=== PATIENT | female | born 1980 | race American Indian/Alaskan Native ===

== ENCOUNTER 2017-01-18 07:34 | Emergency (ER) | payer MEDICAID ==
[2017-01-18 07:58] VITALS: BP 145/90
== END 2017-01-18 13:00 | disposition left against medical advice (07) ==
LOC: ED 07:34
DX: M54.2 Cervicalgia (principal); M54.9 Dorsalgia, unspecified; Z53.21 Procedure and treatment not carried out due to patient leaving prior to being seen by health care provider

== ENCOUNTER 2017-03-30 14:33 | Emergency (ER) | payer MEDICAID ==
--- NOTE | 2017-03-30 15:09 | Emergency Department Report ---
Chief Complaint: Back Pain/Injury Stated Complaint: BACK AND LEFT SIDE Time Seen by Provider: 03/30/17 15:04 - HPI History of Present Illness: PT c/o back pain x 2-3 years. PT states no improvement with muscle relaxer. - ROS Review of Systems: - dysuria - Exam Physical Exam: PT looks well, non toxic + L CVA tenderness MSE screening note: Focused history and physical exam performed. Due to findings the following was ordered: lab ED Disposition for MSE Condition: Stable
[2017-03-30] MEDS ORDERED: PERCOCET 5/325 PO ONE (17:50)
--- NOTE | 2017-03-30 17:51 | Emergency Department Report ---
ED Back Pain/Injury HPI - General Chief Complaint: Back Pain/Injury Stated Complaint: BACK AND LEFT SIDE Time Seen by Provider: 03/30/17 15:04 Source: patient Limitations: No Limitations - History of Present Illness Initial Comments: 37-year-old female past medical history chronic back pain presents with complaint of acute on chronic lower back pain. He denies dysuria hematuria nausea vomiting denies any recent falls denies any saddle paresthesias patient is fully lucid ambulatory without assistance. States she has 6-7 herniated disks in her lower back. His following up as an outpatient with primary doctor but does not have appointment for another 2 weeks. Patient states that her pain is currently a 6 out of 10. MD Complaint: back pain Onset/Timin -: month(s) (6) Similar Symptoms Previously: Yes Place: home Severity: moderate Severity scale (0 -10): 6 Quality: aching Consistency: constant Improves With: none Worsens With: none Associated Symptoms: denies other symptoms - Related Data Home Medications Medication Instructions Recorded Confirmed Last Taken Diclofenac Dr [Camille Dr] 75 mg PO BID 11/13/14 11/13/14 11/12/14 Lisinopril/Hydrochlorothiazide 1 each PO DAILY 11/13/14 11/13/14 11/12/14 [Zestoretic 20-25 mg Tablet] Previous Rx's Medication Instructions Recorded Last Taken Type Cyclobenzaprine [Flexeril 10mg] 10 mg PO Q8H PRN #10 tablet 11/13/14 Unknown Rx HYDROcodone/APAP 5-325 [[place] 1 each PO Q6HR PRN #12 tablet 11/13/14 Unknown Rx 5/325] Gabapentin [Neurontin] 300 mg PO Q8H PRN #30 capsule 03/30/17 Unknown Rx Naproxen [Naprosyn TAB] 500 mg PO BID PRN #25 tablet 03/30/17 Unknown Rx Allergies Allergy/AdvReac Type Severity Reaction Status Date / Time No Known Allergies Allergy Unverified 01/12/14 11:41 ED Review of Systems ROS: Stated complaint: BACK AND LEFT SIDE Other details as noted in HPI Constitutional: denies: chills, fever Eyes: denies: eye pain, eye discharge, vision change ENT: denies: ear pain, throat pain Respiratory: denies: cough, shortness of breath, wheezing Cardiovascular: denies: chest pain, palpitations Endocrine: no symptoms reported Gastrointestinal: denies: abdominal pain, nausea, diarrhea Genitourinary: denies: urgency, dysuria, discharge Musculoskeletal: denies: back pain, joint swelling, arthralgia Skin: denies: rash, lesions Neurological: denies: headache, weakness, paresthesias Psychiatric: denies: anxiety, depression Hematological/Lymphatic: denies: easy bleeding, easy bruising ED Past Medical Hx - Past Medical History Previous Medical History?: Yes Hx Hypertension: Yes Hx Arthritis: Yes Additional medical history: BP has been high for 2 months (self checked), but never followed up with doctor for it . Vaginal dleivery - Surgical History Past Surgical History?: No - Social History Smoking Status: Never Smoker Substance Use Type: Prescribed - Medications Home Medications: Home Medications Medication Instructions Recorded Confirmed Last Taken Type Cyclobenzaprine [Flexeril 10mg] 10 mg PO Q8H PRN #10 tablet 11/13/[address] [Voltaren Dr] 75 mg PO BID 11/13/14 11/13/14 11/12/14 History HYDROcodone/APAP 5-325 [[place] 1 each PO Q6HR PRN #12 tablet 11/13/14 Unknown Rx 5/325] Lisinopril/Hydrochlorothiazide 1 each PO DAILY 11/13/14 11/13/14 11/12/14 History [Zestoretic 20-25 mg Tablet] Gabapentin [Neurontin] 300 mg PO Q8H PRN #30 capsule 03/30/17 Unknown Rx Naproxen [Naprosyn TAB] 500 mg PO BID PRN #25 tablet 03/30/17 Unknown Rx ED Physical Exam - General Limitations: No Limitations General appearance: alert, in no apparent distress - Head Head exam: Present: atraumatic, normocephalic - Eye Eye exam: Present: normal appearance, PERRL, EOMI - ENT ENT exam: Present: mucous membranes moist - Neck Neck exam: Present: normal inspection, full ROM - Respiratory Respiratory exam: Present: normal lung sounds bilaterally. Absent: respiratory distress - Cardiovascular Cardiovascular Exam: Present: regular rate, normal rhythm. Absent: systolic murmur, diastolic murmur, rubs, gallop - GI/Abdominal GI/Abdominal exam: Present: soft, normal bowel sounds - Extremities Exam Extremities exam: Present: normal inspection - Back Exam Back exam: Present: normal inspection - Neurological Exam Neurological exam: Present: alert, oriented X3, CN II-XII intact, normal gait - Expanded Neurological Exam Expanded Patient oriented to: Present: person, place, time Motor strength exam: RUE: 5, LUE: 5, RLE: 5, LLE: 5 Best Eye Response (Chris): (4) open spontaneously Best Motor Response (Newton): (6) obeys commands Best Verbal Response ([place]): (5) oriented Chris Total: 15 - Psychiatric Psychiatric exam: Present: normal affect, normal mood - Skin Skin exam: Present: warm, dry, intact, normal color. Absent: rash ED Course Vital Signs 03/30/17 15:04 Temperature 98.1 F Pulse Rate 83 Respiratory 20 Rate Blood Pressure 144/95 O2 Sat by Pulse 99 Oximetry ED Medical Decision Making - Medical Decision Making A/P: a/p: lower/lower back pain, lumbalgia 1- will provide symptomatic relief with trial of NSAIDS, pt states she has not tried NSAIDS 2- will refer to PMD and orthopedics, pain is atraumatic, no neurovascular deficits on PE, no saddle paraesthesias, no bladder overflow, no bowel incontience. Pt denies any fever, chill, dysruia or IV drug use. Pain likely from chronic degenerative spinal disease. She has a history of herniated disks. No current signs of cauda equina syndrome clinically 3- patient is ambulatory strength 5 out of 5 both lower extremities Critical care attestation.: If time is entered above; I have spent that time in minutes in the direct care of this critically ill patient, excluding procedure time. ED Disposition Clinical Impression: Back pain, chronic Qualifiers: Back pain location: low back pain Back pain laterality: unspecified Sciatica presence: without sciatica Qualified Code(s): M54.5 - Low back pain Back pain Qualifiers: Back pain location: low back pain Chronicity: unspecified Back pain laterality : bilateral Sciatica presence: without sciatica Qualified Code(s): M54.5 - Low back pain Disposition: TO HOME OR SELFCARE Is pt being admited?: No Does the pt Need Aspirin: No Condition: Stable Instructions: Acute Low Back Pain (ED), Chronic Back Pain (ED), Back Pain (ED) Prescriptions: Gabapentin [Neurontin] 300 mg PO Q8H PRN #30 capsule PRN Reason: Pain Naproxen [Naprosyn TAB] 500 mg PO BID PRN #25 tablet PRN Reason: Pain Referrals: [facility] [Outside] - 3-5 Days [facility] [Outside] - 3-5 Days KELLEY STODDARD MD [Primary Care Provider] - 3-5 Days Forms: Work/School Release Form(ED) Time of Disposition: 20:37
[2017-03-30 19:02] LABS: Bilirubin,Urine NEG (Negative); Blood,Urine NEG (Negative); Ketones,Urine NEG (Negative); Leukocyte Esterase,Urine NEG (Negative); Mucus,Urine FEW /HPF; Nitrite,Urine NEG (Negative); Protein,Urine <15 mg/dL mg/dL (Negative); Urobilinogen,Urine < 2.0 mg/dL (<2.0)
--- NOTE | 2017-03-30 21:27 | XRay Report ---
FINAL REPORT PROCEDURE: XR SPINE LUMBOSACRAL 2-3V TECHNIQUE: Lumbar spine radiographs, including AP, lateral, bilateral oblique, flexion, and extension views. CPT 50383 HISTORY: lower back pain COMPARISON: No prior studies are available for comparison. FINDINGS: Alignment in neutral position: Normal . Vertebral body movement with flexion and extension: Physiologic . Vertebral body heights/Disk spaces: Normal . Fracture(s): None . Facets: Normal . Bone mineralization: Normal . IMPRESSION: Anderson Examination.
[2017-03-30 23:23] VITALS: BP 131/85
== END 2017-03-30 20:20 | disposition home or self-care (01) ==
LOC: ED 14:33
DX: M54.5 Low back pain (principal); G89.29 Other chronic pain
CPT/HCPCS: 72100; 81001; 81025; 87086

== ENCOUNTER 2019-01-23 11:00 | Outpatient (CLI) | payer MEDICARE | END 2019-01-23 11:01 | disposition home or self-care (01) | LOC: SLR 11:00 | PROVIDERS: ATTEND Otolaryngology | DX: G47.33 Obstructive sleep apnea (adult) (pediatric) (principal); I10 Essential (primary) hypertension | CPT/HCPCS: G0399 ==

== ENCOUNTER → 2019-02-17 | Outpatient (CLI) | payer MEDICARE | END | disposition home or self-care (01) | LOC: SLR 11:00 | PROVIDERS: ATTEND Otolaryngology | DX: G47.33 Obstructive sleep apnea (adult) (pediatric) (principal); R06.83 Snoring; R40.0 Somnolence | CPT/HCPCS: 95811 ==

== ENCOUNTER 2019-12-20 12:52 | Outpatient (CLI) | payer MEDICARE ==
[2019-12-20 13:28] LABS: Hematocrit 35.5 % (30.3-42.9); Hemoglobin 11.2 gm/dl (10.1-14.3); Mean Corpuscular HGB Conc 32 % (30-34); Mean Corpuscular Volume 78 fl (79-97); Platelet Count 240 K/mm3 (140-440); Red Blood Count 4.54 M/mm3 (3.65-5.03); Red Cell Distribution Width 17.2 % (13.2-15.2)
[2019-12-20 13:46] LABS: Alanine Aminotransferase 15 units/L (7-56); Albumin 3.9 g/dL (3.9-5); BUN/Creatinine Ratio 12; Blood Urea Nitrogen 7 mg/dL (7-17); Calcium 9.8 mg/dL (8.4-10.2); Hemolysis Index 6; Iron 42 ug/dL (37-170); Total Iron Binding Capacity 341 mcg/dL (250-450)
[2019-12-20 14:00] LABS: Basophils % (Auto) 0.6 % (0.0-1.8); Eosinophils # (Auto) 0.2 K/mm3 (0.0-0.4); Eosinophils % (Auto) 3.4 % (0.0-4.3); Lymphocytes # (Auto) 2.2 K/mm3 (1.2-5.4); Lymphocytes % (Auto) 44.5 % (13.4-35.0); Monocytes # (Auto) 0.5 K/mm3 (0.0-0.8); Monocytes % (Auto) 10.6 % (0.0-7.3)
[2019-12-24 11:36] LABS: Vitamin D, 25-OH, D2 <4 ng/mL
== END 2019-12-20 12:53 | disposition home or self-care (01) ==
LOC: LAB 12:52
PROVIDERS: ATTEND Surgery
DX: E66.01 Morbid (severe) obesity due to excess calories (principal)
CPT/HCPCS: 36415; 80053; 82306; 82607; 83550; 83970; 84425; 85025

== ENCOUNTER 2020-05-07 14:17 | Outpatient (CLI) | payer MEDICARE ==
[2020-05-07 14:52] LABS: Basophils % (Auto) 0.4 % (0.0-1.8); Eosinophils # (Auto) 0.1 K/mm3 (0.0-0.4); Eosinophils % (Auto) 1.5 % (0.0-4.3); Hematocrit 33.8 % (30.3-42.9); Hemoglobin 11.1 gm/dl (10.1-14.3); Lymphocytes % (Auto) 52.1 % (13.4-35.0); Mean Corpuscular HGB Conc 33 % (30-34); Mean Corpuscular Volume 81 fl (79-97); Monocytes # (Auto) 0.5 K/mm3 (0.0-0.8); Platelet Count 285 K/mm3 (140-440); Red Blood Count 4.16 M/mm3 (3.65-5.03)
[2020-05-07 15:20] LABS: Alanine Aminotransferase 7 units/L (7-56); Blood Urea Nitrogen 9 mg/dL (7-17); Calcium 9.7 mg/dL (8.4-10.2); Hemolysis Index 3; Iron 29 ug/dL (37-170)
[2020-05-07 15:31] LABS: BUN/Creatinine Ratio 15
[2020-05-12 13:20] LABS: Vitamin D, 25-OH, D2 <4 ng/mL
== END 2020-05-07 14:18 | disposition home or self-care (01) ==
LOC: LAB 14:17
PROVIDERS: ATTEND Surgery
DX: E56.9 Vitamin deficiency, unspecified (principal); K30 Functional dyspepsia; D50.9 Iron deficiency anemia, unspecified; E11.9 Type 2 diabetes mellitus without complications; Z09 Encounter for follow-up examination after completed treatment for conditions other than malignant neoplasm; K90.1 Tropical sprue
CPT/HCPCS: 36415; 80053; 82306; 82607; 83036; 83540; 83970; 84425; 85025

== ENCOUNTER 2020-11-20 15:31 | Outpatient (CLI) | payer MEDICARE, OTHER ==
[2020-11-20 16:18] LABS: Basophils % (Auto) 0.6 % (0.0-1.8); Eosinophils # (Auto) 0.1 K/mm3 (0.0-0.4); Eosinophils % (Auto) 1.4 % (0.0-4.3); Hematocrit 37.5 % (30.3-42.9); Hemoglobin 12.1 gm/dl (10.1-14.3); Lymphocytes # (Auto) 2.5 K/mm3 (1.2-5.4); Mean Corpuscular HGB Conc 32 % (30-34); Mean Corpuscular Volume 85 fl (79-97); Monocytes # (Auto) 0.5 K/mm3 (0.0-0.8); Monocytes % (Auto) 9.5 % (0.0-7.3); Platelet Count 268 K/mm3 (140-440); Red Blood Count 4.43 M/mm3 (3.65-5.03); Red Cell Distribution Width 13.6 % (13.2-15.2)
[2020-11-20 16:39] LABS: Alanine Aminotransferase 8 units/L (7-56); Albumin 4.1 g/dL (3.9-5); Blood Urea Nitrogen 9 mg/dL (7-17); Calcium 9.6 mg/dL (8.4-10.2); Chol/HDL Ratio 2.85 %; HDL Cholesterol 69 mg/dL (40-59); Hemolysis Index 4; Iron 50 ug/dL (37-170); LDL Cholesterol,Direct 133 mg/dL (50-130); Total Iron Binding Capacity 393 mcg/dL (250-450)
[2020-11-20 16:43] LABS: BUN/Creatinine Ratio 15
== END 2020-11-20 15:32 | disposition home or self-care (01) ==
LOC: LAB 15:31
PROVIDERS: ATTEND Surgery
DX: E11.9 Type 2 diabetes mellitus without complications (principal); K30 Functional dyspepsia; E66.01 Morbid (severe) obesity due to excess calories; K90.9 Intestinal malabsorption, unspecified; E55.9 Vitamin D deficiency, unspecified; Z98.84 Bariatric surgery status
CPT/HCPCS: 36415; 80053; 80061; 82607; 82652; 82728; 83036; 83550; 83970; 84425; 84443; 85025